=== PATIENT | male | born 2000 | race Caucasian/White ===

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

== ENCOUNTER 2020-07-08 09:16 | Emergency (ER) | payer BC, OTHER ==
--- NOTE | 2020-07-08 10:05 | ED ---
Psych HPI - General Chief Complaint: Psychiatric Symptoms Stated Complaint: Mental Health Time Seen by Provider: 07/08/20 09:25 Source: patient, RN notes reviewed Mode of arrival: ambulatory Limitations: no limitations - History of Present Illness Initial Comments: 19-year-old male presents emergency Department with chief complaint of psychiatric issues. Patient states that he has a history of anxiety, depression, bipolar disorder. Patient was on lithium but states when he stated with him symptoms were much worse. He states he discontinued it. Patient states he did have a psychiatrist to recently quit his practice. Patient states his PCP will not prescribe him any medications. He does have an appointment set up for new psychiatrist. Patient states she's not suicidal he states that he's had no motivation, racing thoughts states he cannot go to work. Patient denies any drug or alcohol abuse. - Related Data Home Medications Medication Instructions Recorded Confirmed Albuterol Sulfate [Ventolin HFA] 1 - 2 puff INHALATION RT-Q6H PRN 07/08/20 07/08/20 Amitriptyline HCl [Elavil] 25 mg PO DAILY 07/08/20 07/08/20 [place] Carbonate [[place] 600 mg PO HS 07/08/20 07/08/20 Carbonate ER] Rizatriptan Benzoate [Maxalt] 10 mg PO DAILY PRN 07/08/20 07/08/20 buPROPion HCL [Wellbutrin SR] 100 mg PO DAILY 07/08/20 07/08/20 Allergies Allergy/AdvReac Type Severity Reaction Status Date / Time banana AdvReac Unknown Verified 07/08/20 11:27 Review of Systems ROS Statement: Those systems with pertinent positive or pertinent negative responses have been documented in the HPI. ROS Other: All systems not noted in ROS Statement are negative. Past Medical History Past Medical History: Asthma Additional Past Medical History / Comment(s): IBD History of Any Multi-Drug Resistant Organisms: None Reported Past Surgical History: No Surgical Hx Reported Past Psychological History: Anxiety, Bipolar, Depression Smoking Status: Former smoker, Vaper Past Alcohol Use History: None Reported Past Drug Use History: None Reported General Exam Limitations: no limitations General appearance: alert, in no apparent distress Head exam: Present: atraumatic, normocephalic, normal inspection Eye exam: Present: normal appearance, PERRL, EOMI. Absent: scleral icterus, conjunctival injection, periorbital swelling ENT exam: Present: normal exam, mucous membranes moist Neck exam: Present: normal inspection, full ROM. Absent: tenderness, meningismus, lymphadenopathy Respiratory exam: Present: normal lung sounds bilaterally. Absent: respiratory distress, wheezes, rales, rhonchi, stridor Cardiovascular Exam: Present: regular rate, normal rhythm, normal heart sounds. Absent: systolic murmur, diastolic murmur, rubs, gallop, clicks Neurological exam: Present: alert Psychiatric exam: Present: anxious Skin exam: Present: warm, dry, intact, normal color. Absent: rash Course Vital Signs 07/08/20 07/08/20 09:21 12:40 Temperature 97.9 F 97.5 F L Pulse Rate 91 86 Respiratory 18 16 Rate Blood Pressure 113/79 91/70 O2 Sat by Pulse 100 98 Oximetry Medical Decision Making - Medical Decision Making Patient was evaluated by EPS case discussed with psychiatrist recommend patient to be discharged and followed up with outpatient treatment. - Lab Data Lab Results 07/08/20 Range/Units 12:40 Urine Opiates Screen Not Detected (NotDetected) Ur Oxycodone Screen Not Detected (NotDetected) Urine Methadone Screen Not Detected (NotDetected) Ur Propoxyphene Screen Not Detected (NotDetected) Ur Barbiturates Screen Not Detected (NotDetected) U Tricyclic Antidepress Not Detected (NotDetected) Ur Phencyclidine Scrn Not Detected (NotDetected) Ur Amphetamines Screen Not Detected (NotDetected) U Methamphetamines Scrn Not Detected (NotDetected) U Benzodiazepines Scrn Not Detected (NotDetected) Urine Cocaine Screen Not Detected (NotDetected) U Marijuana (THC) Screen Not Detected (NotDetected) Disposition Clinical Impression: Bipolar disorder Disposition: HOME SELF-CARE Condition: Stable Instructions (If sedation given, give patient instructions): Bipolar Disorder (ED) Additional Instructions: Please return to the Emergency Department if symptoms worsen or any other concerns. Is patient prescribed a controlled substance at d/c from ED?: No Referrals: Brown Calixto MD [Primary Care Provider] - 1-2 days Time of Disposition: 13:09
[2020-07-08 12:41] VITALS: BP 91/70; PULSE 86; RESP 16; TEMP 97.5
[2020-07-08 13:06] LABS: Amphetamine Screen,Urine Not Detected (NotDetected); Barbiturate Screen,Urine Not Detected (NotDetected); Benzodiazepines Screen,Urine Not Detected (NotDetected); Cocaine Screen,Urine Not Detected (NotDetected); Methadone Screen, Urine Not Detected (NotDetected); Opiate Screen,Urine Not Detected (NotDetected); Oxycodone Screen, Urine Not Detected (NotDetected); Phencyclidine Screen,Urine Not Detected (NotDetected); Tricyclic Antidepressant,Urine Not Detected (NotDetected); Urn Cannabinoid Scrn Not Detected (NotDetected)
== END 2020-07-08 13:48 | disposition home or self-care (01) ==
LOC: EC 09:16
DX: F31.9 Bipolar disorder, unspecified (principal); J45.909 Unspecified asthma, uncomplicated; F41.9 Anxiety disorder, unspecified; Z79.899 Other long term (current) drug therapy; Z91.018 Allergy to other foods; Z87.891 Personal history of nicotine dependence
CPT/HCPCS: 80306; 82075; 99283

== ENCOUNTER → 2023-12-07 | Outpatient (CLI) | payer BC ==
[2023-12-07 15:58] VITALS: BP 112/78; PULSE 105; RESP 16; TEMP 98.6
--- NOTE | 2023-12-07 16:28 | P.SLEEP ---
History of Present Illness DATE: 12/07/2023 CONSULTATION/NEW PATIENT EVALUATION HISTORY OF PRESENT ILLNESS/SLEEP-WAKE EVALUATION: 23-year-old gentleman had b een evaluated in the sleep center for possible obstructive sleep apnea hypopnea syndrome and significant excessive daytime sleepiness. SLEEP SCHEDULE: Usually sleep schedule from midnight until 6:30 AM on weekdays and from 1 AM until 11 AM on weekend. FALLING ASLEEP: Usually no problems with falling asleep. DURING SLEEP: Patient snores and has dry mouth and heartburn during the sleep. No history of hypnogogical hallucinations, sleep paralysis, or cataplexy. DURING THE DAY/WAKE STATE: In the morning patient wake up tired, falling asleep during the day, has episodes of irritability, depression and anxiety. [place] sleepiness scale is increased to 12. Patient usually takes 1 nap at noon, feels refreshed after a nap. PAST MEDICAL HISTORY: Asthma, migraines, acid reflux, eosinophilic esophagitis, bipolar. PAST SURGICAL HISTORY: None. MEDICATIONS: Please see below below, plus albuterol as needed. SOCIAL HISTORY: Please see below. FAMILY HISTORY: Diabetes insipidus. REVIEW OF SYSTEMS: Snoring, sleepiness during the day. No fevers. No double vision. No recent chest pain. No shortness of breath. No abdominal pain. No bleeding episodes. No blood in urine. No seizure episodes. PHYSICAL EXAMINATION: GENERAL: A pleasant patient without any distress. VITAL SIGNS: Please see below. HEENT: PERRLA, EOMI. Evaluation of oropharynx showed tongue protrudes midline, low position of soft palate Mallampati 3. NECK: Supple. No JVD. Thyroid is not palpable. 15 inches in circumference. LUNGS: Clear to percussion and to auscultation. Good air exchange. No wheezing or rhonchi. HEART: S1, S2 regular. No murmurs, gallops or rubs. ABDOMEN: Soft and nontender. Bowel sounds are present. No organomegaly appreciated. EXTREMITIES: No clubbing or cyanosis. INSTALLATION COORDINATOR: Awake, alert, and oriented x3. Cranial nerves 2 to 7 intact. There is no fasciculation or atrophy noted. No focal deficits observed. ASSESSMENT: 1. Snoring, sleepiness during the day, low position of soft palate Mallampati 3. Possible obstructive sleep apnea hypopnea syndrome. 2. Significant excessive daytime sleepiness and tiredness, [place] Sleepiness Scale increased to 12. Differential diagnosis may include hypersomnia and narcolepsy type II in case if sleep study will be negative for obstructive sleep apnea hypopnea syndrome. 3. Asthma. 4. History of irritable bowel syndrome. 5. Eosinophilic esophagitis. 6 . Acid reflux. 7. Bipolar. PLAN: 1. Home sleep apnea test for evaluation of patient's breathing during sleep. 2. Following plan after reading sleep study. Patient may need multiple sleep latency test if sleep study will be negative for obstructive sleep apnea hypopnea syndrome. 3. Preferable position during sleep on the side. 4. No driving if patient feels any sleepiness. Patient is aware of civil and criminal liability for unsafe driving. 5. Sleep hygiene with regular sleep time for at least 7.5-8 hours. 6. Watching weight. Thank you very much for referring this patient for consultation. Sincerely, Samuel Smith MD, PhD, FAASM. Diplomat of [place] [employer], Sleep Medicine Board by [place] [employer] [place] [employer] Flash Welder of [facility] [place] cc: Steve Gibbs MD Past Medical History Past Medical History: Asthma, GERD/Reflux Additional Past Medical History / Comment(s): IBD. MIGRAINES, DIAGNOSED WITH "EOE" (Eosinophilic Esophagitis), Bipolar, sinus headaches/migraines. History of Any Multi-Drug Resistant Organisms: None Reported Past Surgical History: No Surgical Hx Reported Additional Past Surgical History / Comment(s): EGD (upper scope) Past Anesthesia/Blood Transfusion Reactions: No Reported Reaction Past Psychological History: Anxiety, Bipolar, Depression Additional Psychological History / Comment(s): Never smoked, used to Vape. Smoking Status: Former smoker, Vaper Past Alcohol Use History: Occasional Additional Past Alcohol Use History / Comment(s): QUIT SMOKING 2019 Past Drug Use History: Marijuana Additional Drug Use History / Comment(s): USES MARIJUANA ON OCCASION-INSTRUCTED TO REFRAIN FROM USE FOR AT LEAST 24 HOURS PRIOR TO PROCEDURE - Past Family History Mother Family Medical History: No Reported History Additional Family Medical History / Comment(s): Sister with insomnia, Grandma with diabetes insipidous Medications and Allergies Home Medications Medication Instructions Recorded Confirmed Type Albuterol Sulfate [Ventolin HFA] 1 - 2 puff INHALATION RT-Q6H PRN 07/08/20 04/29/22 History Amitriptyline HCl [Elavil] 50 mg PO HS 07/08/20 12/07/23 History buPROPion HCL [Wellbutrin SR] 300 mg PO DAILY 07/08/20 12/07/23 History Pantoprazole [Protonix] 40 mg PO BID 04/27/22 04/29/22 History Rimegepant Sulfate [Nurtec Odt] 75 mg PO DAILY PRN 04/27/22 04/27/22 History lamoTRIgine [LaMICtal] 50 mg PO HS 04/27/22 04/29/22 History Omeprazole 40 mg PO DAILY 12/07/23 12/07/23 History Allergies Allergy/AdvReac Type Severity Reaction Status Date / Time banana AdvReac HEARTBURN Verified 04/29/22 13:08 Physical Exam Vitals: Vital Signs Temp Pulse Resp BP Pulse Ox 12/07/23 15:55 98.6 F 105 H 16 112/78 98 Intake and Output 12/07/23 12/07/23 12/07/23 06:59 14:59 22:59 Other: Weight 81.25 kg Sleep Note - Sleep Data ESS Total: 12 - Sleep Note Sleep Note: Temperature: 98.6 F Pulse Rate: 105 Respiratory Rate: 16 Blood Pressure: 112/78 SpO2: 98 Height: 5 ft 5.5 in Weight: 81.25 kg BMI: Neck Circumference: 15
== END ==
LOC: 3 N SLEEP 15:23
PROVIDERS: ATTEND Internal Medicine
CPT/HCPCS: 99211

== ENCOUNTER → 2023-12-26 | Outpatient (CLI) | payer BC ==
--- NOTE | 2023-12-27 11:29 | P.PCN ---
Description of Procedure: CLINICAL: A home sleep apnea test has been done for confirmation of possible obstructive sleep apnea-hypopnea syndrome. DESCRIPTION OF PROCEDURE: RESULTS: Recording time was 9 hours 3 minutes. Evaluation time was 8 hours 28 minutes. Evaluation time is sufficient for making conclusion about results of the test. Raw data of sleep recording has been reviewed and is adequate. Respiratory channel showed 3 apneas and 9 hypopneas. Apnea-hypopnea index was 1.4 per hour. Pulse rate in the range between minimum 54, maximum 106, average 74 by computer calculation. Lowest desaturation was 91%. IMPRESSION: 1. No significant respiratory abnormalities have been documented during the sleep study. Normal oxygenation during sleep. 2. Patient presents with symptoms of excessive daytime sleepiness with increased [place] Sleepiness Scale. Please see other impressions from consultation. PLAN: 1. Multiple sleep latency test for objective relation symptoms of excessive daytime sleepiness for differential diagnosis with hypersomnia and narcolepsy. 2. Following plan after reading MSLT. 3. Watching weight. 4. Sleep hygiene with regular time in bed for at least 8 hours. 5. No driving if feeling any sleepiness. Thank you very much for allowing me to participate in the management of your patient. Sincerely, Samuel Smith MD, PhD, FAASM Diplomat of [place] Sleep Medicine Board of [place] [employer] Flight Superintendent of [facility] [place] cc: Steve Gibbs MD
== END ==
LOC: 3 N SLEEP 16:49
PROVIDERS: ATTEND Internal Medicine

== ENCOUNTER 2024-03-19 19:53 | Outpatient (CLI) | payer BC ==
[2024-03-20 17:01] LABS: Urine Alcohol Negative (Negative); Urine Barbiturate Negative (Negative); Urine Cocaine Negative (Negative); Urine Methadone Negative (Negative); Urine Opiates Negative (Negative); Urine Phencyclidine Negative (Negative)
--- NOTE | 2024-03-21 11:49 | P.PCN ---
Description of Procedure: POLYSOMNOGRAPHY AND MSLT REPORT PROCEDURE(S)/DATE(S): Polysomnography 03/19/2024, multiple sleep latency test 03/20/2024 CLINICAL: Patient has been seen in the sleep center for evaluation of obstructive sleep apnea-hypopnea syndrome. Please see my consultation. Sleep study has been done for evaluation of patient breathing during the sleep. PROCEDURE: The standard montage for clinical polysomnography included the electroencephalogram, the electrooculogram, the mentalis surface el ectromyography and Lead II cardiography. The respiratory battery consisted of measurements of nasal/buccal air flow, pressure transducer measurements from nose, thoracic and/or abdominal effort and intercostal surface electromyography. Video monitoring has been done to check for any parasomnia events. Nocturnal oxyhemoglobin saturations were obtained by finger oximetry. Step-rebolledo titration with positive airway pressure was utilized to control the respiratory events, if necessary. RESULTS: During the diagnostic sleep study sleep efficiency was normal 91.2%. Latency to sleep onset was normal 20.5 min. Sleep architecture showed stage NI was short 0.5%, Delta sleep was normal at 12.9%, REM sleep was normal 24.7%. REM sleep latency slightly short 52.5 minutes. Respiratory channel showed 3 obstructive apneas, 0 mixed apneas, 5 central apneas, 2 hypopneas with lowest oxygen level 90%. Total apnea hypopnea index was 1.5. Heart rate was in the range between 59 and 90, average 71. EMG showed 0 periodic limb movements per hour. Multiple sleep latency test have been done on the following day, consisted from 5 naps, patient fell asleep on all naps. Mean sleep latency 2.9 minutes, no sleep onset REM periods have been documented IMPRESSIONS: 1. No significant respiratory abnormalities have been documented during the sleep study, normal oxygenation during sleep, normal sleep efficiency, slightly short REM sleep latency. 2. No significant periodic limb movements have been documented. 3. MSLT confirmed pathological sleepiness mean sleep latency only 2.9 minutes. Differential diagnosis include narcolepsy and idiopathic hypersomnia Please see other impressions from consultation PLAN: 1. I will see patient for follow-up visit to explain results of the test and recommendations. 2. Sleep hygiene with regular time in bed for at least 7-1/2 hours. 3. No driving if feeling sleepiness. 4. Patient will be started on medications improving alertness during the day. Thank you very much for allowing me to participate in the management of your patient. Sincerely, Samuel Smith MD, PhD, FAASM. Diplomat of [place] [employer], Sleep Medicine Board by [place] [employer] Managing Editor of [facility] [place] cc: Steve Gibbs MD
== END 2024-03-20 17:15 | disposition home or self-care (01) ==
LOC: 3 N SLEEP 19:53
PROVIDERS: ATTEND Internal Medicine
DX: G47.33 Obstructive sleep apnea (adult) (pediatric) (principal); G47.00 Insomnia, unspecified; Z91.018 Allergy to other foods
CPT/HCPCS: 80306; 95805; 95810

== ENCOUNTER → 2024-03-21 | Outpatient (CLI) | payer BC ==
[2024-03-21 14:32] VITALS: BP 125/87; PULSE 115; RESP 16; TEMP 98.3
--- NOTE | 2024-03-21 15:19 | P.PROGSL ---
Subjective DATE: 03/21/2024 FOLLOW UP VISIT. Patient returned to sleep center for follow-up visit to discuss results of sleep studies and following plan. I discussed results of sleep studies with patient in details. Diagnostic polysomnogram did not show abnormalities of respiration or periodic limb movements. Normal oxygenation during sleep. Normal sleep efficiency. Multiple sleep latency test consisted from 5 naps on the following day documented pathological sleepiness with mean sleep latency 2.9 minutes. No REM sleep was documented during naps, but patient is on treatment with Wellbutrin, which may decrease amount of REM sleep. Patient continued to have symptoms of significant excessive daytime sleepiness. [place] sleepiness scale is significantly increased to 14. MEDICATIONS:1. Wellbutrin SR 300 mg once a day in the morning 2. Pantoprazole 40 mg twice a day During physical exam: GENERAL: A pleasant patient without any distress. VITAL SIGNS: Heart rate significantly increased to 114, otherwise see below. HEENT: PERRLA, EOMI. NECK: Supple. No JVD. LUNGS: Clear to percussion and to auscultation. Good air exchange. No wheezing or rhonchi. HEART: S1, S2 regular, tachycardia. ABDOMEN: Soft and nontender. EXTREMITIES: No clubbing or cyanosis. FILTER TANK TENDER: Awake, alert, and oriented x3. No focal deficit. Impressions: 1. No significant respiratory abnormalities, normal oxygenation during sleep 2. No periodic limb movements. 3. Multiple sleep latency test confirmed pathological sleepiness with mean sleep latency 2.9 minutes. No sleep onset REM have been documented but patient was on treatment with Wellbutrin, which may decrease amount of REM sleep. Narcolepsy type II. 4. Asthma. 5. History of irritable bowel syndrome. 6. Eosinophilic esophagitis. 7. Acid reflux. 8. Bipolar. 9. Tachycardia in the office, according to patient heart rate at home is in normal range. Plan: 1. Patient will be started on treatment with armodafinil 150 mg once a day in the morning. Adderall or Ritalin may increase heart rate and patient already has episodes of increasing heart rate. 2. Sleep hygiene with regular time in bed for at least 8 hours. 3. Daytime naps permitted 4. Precautions related to driving. No driving if feel any sleepiness. Patient is aware about civil and criminal liability for unsafe driving, promised to follow recommendations. 5. Follow up visit in 2 months or earlier if patient has any problems. Thank you very much for allowing me to participate in the management of your patient. Samuel Smith MD, PhD, FAASM. Diplomat of [place] [employer], Sleep Medicine Board by [place] [employer] Clay Molder of [facility] [place] cc: Steve Gibbs MD Objective - Vital Signs Vital Signs: Vital Signs Temp 98.3 F 03/21/24 14:31 Pulse 115 H 03/21/24 14:31 Resp 16 03/21/24 14:31 BP 125/87 03/21/24 14:31 Pulse Ox 97 03/21/24 14:31 FiO2 Home Medications: Home Medications Medication Instructions Recorded Confirmed Type Albuterol Sulfate [Ventolin HFA] 1 - 2 puff INHALATION RT-Q6H PRN 07/08/20 04/29/22 History Amitriptyline HCl [Elavil] 50 mg PO HS 07/08/20 12/07/23 History buPROPion HCL [Wellbutrin SR] 300 mg PO DAILY 07/08/20 12/07/23 History Pantoprazole [Protonix] 40 mg PO BID 04/27/22 04/29/22 History Rimegepant Sulfate [Nurtec Odt] 75 mg PO DAILY PRN 04/27/22 04/27/22 History lamoTRIgine [LaMICtal] 50 mg PO HS 04/27/22 04/29/22 History Omeprazole 40 mg PO DAILY 12/07/23 12/07/23 History
== END ==
LOC: 3 N SLEEP 14:15
PROVIDERS: ATTEND Internal Medicine
DX: J45.909 Unspecified asthma, uncomplicated (principal); K20.0 Eosinophilic esophagitis; K21.9 Gastro-esophageal reflux disease without esophagitis; F31.9 Bipolar disorder, unspecified; R00.0 Tachycardia, unspecified; Z87.19 Personal history of other diseases of the digestive system
CPT/HCPCS: 99212